=== PATIENT | male | born 1945 | race Caucasian/White ===

== ENCOUNTER 2018-11-13 13:46 | Emergency (ER) | payer MEDICARE, OTHER ==
[~2018-11-13] VITALS: Ht 165.1 cm; Wt 77.3 kg
[2018-11-13 13:54] VITALS: Ht 165.1 cm; Wt 77.3 kg
--- NOTE | 2018-11-13 14:29 | ERD ---
ER Documentation Chief Complaint Chief Complaint BIB EMS from [facility] with c/o FB to right ear, hearing aid broke off inside ear HPI 73-year-old male past medical history of bipolar disorder, trigeminal neuralgia presents for right ear pain x1 day. Patient [place] [facility]. He was brought in by ambulance. He states that he had hearing aid in his right ear when he tried to remove a piece of the plastic stuck in the ear. He states he has about 4 out of 10 pain with decreased hearing over the right ear. The pain is described as a dull sensation, nonradiating. Denies fevers or chills. Denies chest pain or shortness of breath. No other modifying factors noted, no treatment tried. ROS All systems reviewed and are negative except as per history of present illness. Allergies Allergies: Coded Allergies: sertraline (Verified Allergy, Mild, 11/13/18) PMhx/Soc History of Surgery: Yes (Ear surgeries) Hx Psychiatric Problems: Yes (bipolar disorder) Hx Alcohol Use: No Hx Substance Use: No Hx Tobacco Use: No FmHx Family History: No coronary disease Physical Exam Vitals Vital Signs Date Temp Pulse Resp B/P (MAP) Pulse Ox O2 O2 Flow FiO2 Time Delivery Rate 11/13/18 97.7 58 20 113/58 98 Room Air 14:44 (76) 11/13/18 98.0 61 20 97/60 (72) 96 13:54 Physical Exam Const: No acute distress Head: Atraumatic Eyes: Normal Conjunctiva ENT: Plastic foreign body noted in the right ear canal, left ear canal clear, Nose and Mouth examination normal. Neck: Full range of motion. No meningismus. Resp: Clear to auscultation bilaterally Cardio: Regular rate and rhythm, no murmurs Skin: No petechiae or rashes Ext: No cyanosis, or edema Neur: Awake and alert Psych: Normal Mood and Affect Procedures/MDM Medical Decision Making: Presents for foreign body over the right ear. Patient appeared well on physical exam. Examination shows a foreign body in the right ear canal. The foreign body was removed from the right ear canal, see procedure note below Foreign Body Removal Performed by: Indication: retained foreign body Location: Right ear canal Anesthesia: None Foreign bodies recovered: Plastic earbud Post-procedure assessment: foreign body removed. No complications. Neurovascularly intact post procedure Patient tolerance: Patient tolerated the procedure well with no immediate complications The right ear canal was reexamined after foreign body was removed there was no acute trauma. 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 He has had surgeries to his ear in the past. Patient advised to follow up with PCP in 1-2 days. Patient advised to return to ED for new or worsening symptoms. Patient stable on discharge from the ED. Disclaimer: Inadvertent spelling and grammatical errors are likely due to EHR/dictation software use and do not reflect on the overall quality of patient care. Also, please note that the electronic time recorded on this note does not necessarily reflect the actual time of the patient encounter. Departure Diagnosis: Primary Impression: Foreign body of ear, right Encounter type: initial encounter Qualified Codes: T16.1XXA - Foreign body in right ear, initial encounter Condition: Fair Patient Instructions: Foreign Body, Ear Canal (Removed) Referrals: [facility] YOU HAVE RECEIVED A MEDICAL SCREENING EXAM AND THE RESULTS INDICATE THAT YOU DO NOT HAVE A CONDITION THAT REQUIRES URGENT TREATMENT IN THE EMERGENCY DEPARTMENT. FURTHER EVALUATION AND TREATMENT OF YOUR CONDITION CAN WAIT UNTIL YOU ARE SEEN IN YOUR DOCTORS OFFICE WITHIN THE NEXT 1-2 DAYS. IT IS YOUR RESPONSIBILITY TO MAKE AN APPOINTMENT FOR FOLOW-UP CARE. IF YOU HAVE A PRIMARY DOCTOR --you should call your primary doctor and schedule an appointment IF YOU DO NOT HAVE A PRIMARY DOCTOR YOU CAN CALL OUR PHYSICIAN REFERRAL HOTLINE AT IF YOU CAN NOT AFFORD TO SEE A PHYSICIAN YOU CAN CHOSE FROM THE FOLLOWING [facility] [address] [facility]. [facility] [address] [facility] [facility] [address] [facility] [facility] [address] [facility]. [facility] [address] [facility]. [facility] [address] Additional Instructions: Call your primary care doctor TOMORROW for an appointment during the next 1-2 days.See the doctor sooner or return here if your condition worsens before your appointment time. UMER DWYER DO Nov 13, 2018 14:29
[2018-11-13 17:40] VITALS: BP 137/74; PULSE 52; RESP 18
== END 2018-11-13 18:03 | disposition home or self-care (01) ==
LOC: FTE 13:46
DX: T16.1XXA Foreign body in right ear, initial encounter (principal); X58.XXXA Exposure to other specified factors, initial encounter; Y92.9 Unspecified place or not applicable